=== PATIENT | male | born 1995 | race Caucasian/White ===

== ENCOUNTER 2016-09-05 23:25 | Emergency (ER) | payer OTHER ==
[~2016-09-05] VITALS: Ht 185.4 cm; Wt 90.7 kg
[2016-09-05 23:40] VITALS: BP 124/73
--- NOTE | 2016-09-06 00:34 | ED UPPER/LOWER EXTREMITY COMPL ---
History of Present Illness General Chief Complaint: Foot or Ankle Injury Stated Complaint: LEFT ANKLE INJURY S/P FOOTBALL GAME Source: patient Exam Limitations: no limitations Vital Signs & Intake/Output Vital Signs & Intake/Output Vital Signs Date Time Temp Pulse Resp B/P Pulse O2 O2 Flow FiO2 Ox Delivery Rate 09/05 2340 100.2 109 18 124/73 97 Room Air ED Intake and Output 09/06 0000 09/05 1200 Intake Total Output Total Balance Patient 200 lb Weight Allergies Coded Allergies: No Known Allergies (09/05/16) Reconcile Medications Ibuprofen 800 MG TABLET 1 TAB PO TID pain Oxycodone HCl/Acetaminophen (Percocet 5-325 MG Tablet) 5 MG-325 MG TABLET 1 TAB PO 4XDP PRN PAIN TEN...[id number] Triage Note: ROLLED ANKLE PLAYING FOOTBALL ARRIVED WITH SPLINT IN PLACE PAIN 10/10 MOTRIN 600 MG PO AT TRIAGE Triage Nurses Notes Reviewed? yes Onset: Abrupt Duration: hour(s): Timing: single episode today Severity: moderate Pain/Injury Location: Left: Leg. Method of Injury: direct blow Modifying Factors: Improves With: rest. Worsens With: movement. HPI: 21-year-old gentleman in prior good health presents with left ankle and leg pain. He states that he was playing flag football. "I got hit my body went one way and my leg stayed where was." He notes pain and swelling in his ankle and focal pain in the left lateral aspect of his tibia. He denies other injury. Past History Travel History Traveled to [place] past 21 day No Medical History Any Pertinent Medical History? see below for history Neurological: NONE EENT: NONE Cardiovascular: NONE Respiratory: NONE Gastrointestinal: NONE Hepatic: NONE Renal: NONE Musculoskeletal: NONE Psychiatric: NONE Endocrine: NONE Blood Disorders: NONE Cancer(s): NONE Surgical History Surgical History: none Psychosocial History What is your primary language Panamanian Tobacco Use: Never used Family History Hx Contributory? No Review of Systems Review of Systems Constitutional: Reports: no symptoms. EENTM: Reports: no symptoms. Respiratory: Reports: no symptoms. Cardiovascular: Reports: no symptoms. Gastrointestinal/Abdominal: Reports: no symptoms. Genitourinary: Reports: no symptoms. Musculoskeletal: Reports: no symptoms. Skin: Reports: no symptoms. Neurological/Psychological: Reports: no symptoms. Hematologic/Endocrine: Reports: no symptoms. Immunological: Reports: no symptoms. All Other Systems: Reviewed and Negative Physical Exam Physical Exam General Appearance: well developed/nourished, mild distress Head: atraumatic Eyes: Bilateral: normal appearance. Ears, Nose, Throat: normal pharynx, normal ENT inspection, hearing grossly normal Neck: normal inspection, supple Cardiovascular/Respiratory: regular rate/rhythm Back: normal inspection Leg Left: pain to palpation on left mid calf as well as diffusely around left ankle. decreased range of motion. light touch and distal pulses are intact. Skin: intact, normal color, warm/dry Lymphatic: no anterior cervical andrade Progress Differential Diagnosis: contusion, fracture, sprain Plan of Care: Orders Procedure Date/time Status [id number], LEFT 09/06 24 Active XRY-ANKLE 3 OR MORE VIEWS L 09/05 2338 Active Current Medications Sig/Vicky Start time Last Medication Dose Stop Time Status Admin Oxycodone/ 1 TAB ONCE ONE 09/06 0100 AC Acetaminophen 09/06 0101 (Percocet) Diagnostic Imaging: Viewed by Me: Radiology Read. Discussed w/RAD: Radiology Read. Radiology Impression: left mid shaft fibular. left posterior malleolar fx. Comments: PATIENT: ALEJANDRO NAGEL PRESENT AGE: 21 PATIENT ACCOUNT NO: [id number] : 93 LOCATION: [facility] ORDERING PHYSICIAN: DARNELL VANEGAS MD SERVICE DATE: 09/06/16 EXAM TYPE: RAD - XRY-ANKLE 3 OR MORE VIEWS L; [id number], LEFT EXAMINATIONS: LEFT ANKLE 3 VIEWS AND LEFT TIB/FIB 2 VIEWS CLINICAL INFORMATION: Left tib-fib and ankle pain following injury. COMPARISON: None. TECHNIQUE: AP, lateral, oblique views of the left ankle were obtained. AP and lateral views of the left tib-fib are provided. FINDINGS: There is a comminuted midshaft left fibular fracture. Identified on the lateral view only is suggestion of irregularity to the posterior malleolus. There is mild soft tissue swelling about the ankle. IMPRESSION: Comminuted midshaft left fibular fracture. Likely minimally displaced posterior malleolar fracture. DICTATED BY: LINH COLINDRES MD DATE/TIME DICTATED:09/06/1655 FLAME PLANER:AMITA DATE/TIME TRANSCRIBED:09/06/1655 CONFIDENTIAL, DO NOT COPY WITHOUT APPROPRIATE AUTHORIZATION. <Electronically signed in Other Vendor System> SIGNED BY: LINH COLINDRES MD 09/06/16 0101 Departure Departure Disposition: HOME OR SELF CARE Condition: Stable Clinical Impression Primary Impression: Fibula fracture Secondary Impressions: Malleolar fracture Referrals: PATIENT HAS NO PRIMARY CARE DR (PCP/Family) Departure Forms: Customer Survey General Discharge Information Prescriptions: Current Visit Scripts Oxycodone HCl/Acetaminophen (Percocet 5-325 MG Tablet) 1 TAB PO 4XDP PRN PAIN #10 TAB TEN...[id number] Ibuprofen 1 TAB PO TID #60 TAB Comments pt feeling well at discharge.. he will follow up with ortho later today. Procedures Splinting Location: LEFT ANKLE/LEG Manual Alignment Performed: No Hand-Made Type: orthoglass Splint: sugar-tong, POSTERIOR Splint Applied By: splint applied by me Pre-Proc Neuro Vasc Exam: normal Post-Proc Neuro Vasc Exam: normal
--- NOTE | 2016-09-06 01:01 | RADIOLOGY REPORT ---
EXAMINATIONS: LEFT ANKLE 3 VIEWS AND LEFT TIB/FIB 2 VIEWS CLINICAL INFORMATION: Left tib-fib and ankle pain following injury. COMPARISON: None. TECHNIQUE: AP, lateral, oblique views of the left ankle were obtained. AP and lateral views of the left tib-fib are provided. FINDINGS: There is a comminuted midshaft left fibular fracture. Identified on the lateral view only is suggestion of irregularity to the posterior malleolus. There is mild soft tissue swelling about the ankle. IMPRESSION: Comminuted midshaft left fibular fracture. Likely minimally displaced posterior malleolar fracture.
[2016-09-06] MEDS ORDERED: IBUPROFEN800 M1 PO (01:24)
[2016-09-06] MEDS ORDERED: PERCOCET 5-3251 EACH PO (01:24)
== END 2016-09-06 01:32 ==
LOC: ERH 23:25
DX: S82.402A Unspecified fracture of shaft of left fibula, initial encounter for closed fracture (principal); X58.XXXA Exposure to other specified factors, initial encounter; Y93.62 Activity, american flag or touch football
CPT/HCPCS: 73590-LT; 73610-LT